=== PATIENT | male | born 1970 | race Caucasian/White ===

== ENCOUNTER 2019-03-01 08:03 | Inpatient (IN) | payer OTHER ==
[~2019-03-01] VITALS: Ht 177.8 cm; Wt 85.5 kg
[2019-03-01 08:52] LABS: Hematocrit 46.6 % (37.0-53.0); Hemoglobin 14.4 g/dL (13.5-17.5); Mean Corpuscular HGB 32.1 pg (26.0-34.0); Mean Corpuscular HGB Conc 30.9 g/dL (31.5-36.5); Mean Corpuscular Volume 104 fL (80-100); Mean Platelet Volume 9.5 fL (9.1-12.4); Platelet Count 450 K/mm3 (150-400); RDW Coefficient Variation 12.2 % (11.7-14.2); RDW Standard Deviation 47.9 fL (35.1-46.3); Red Blood Cell Count 4.49 M/mm3 (4.30-5.90); White Blood Cell Count 19.87 K/mm3 (4.00-11.30)
[2019-03-01 08:53] LABS: U Amphetamine Screen Not Detected; U Barbituate Screen Not Detected; U Benzodiazapine Screen Not Detected; U Buprenorphine Screen Not Detected; U Cannabinoids Screen DETECTED; U Cocaine Screen Not Detected; U Methadone Screen Not Detected; U Methamphetamine Screen Not Detected; U Opiates Screen Not Detected; U Oxycodone Screen Not Detected; U Phencyclidine Screen Not Detected; U Propoxyphene Screen Not Detected
[2019-03-01 09:05] LABS: Calcium, Ionized (POC) 1.22 mmol/L (1.10-1.46); Chloride (POC) 103 mmol/L (98-108); Creatinine (POC) 1.1 mg/dL (0.8-1.3); Glucose (ISTAT POC) 361 mg/dL (70-99); Hemoglobin (POC) 15.3 g/dL (13.5-17.5); Sodium (POC) 135 mmol/L (135-148); Total CO2 (POC) 19 mmol/L (21-32)
[2019-03-01 09:06] LABS: Alanine Aminotransfer (ALT/SGP 29 U/L (12-78); Albumin, Blood 4.1 g/dL (3.4-5.0); Alk Phos 76 U/L (50-136); Anion Gap 26 mmol/L (6-16); Aspartate Aminotrans (AST/SGOT 19 U/L (12-37); Bilirubin, Total 0.2 mg/dL (0.1-1.0); Blood Urea Nitrogen 15 mg/dL (8-24); Bun/Creatinine Ratio 13.9 (12.0-20.0); CO2, Blood 9 mmol/L (21-32); Calcium, Blood 9.2 mg/dL (8.5-10.1); Chloride, Blood 102 mmol/L (98-108); Creatinine, Blood 1.08 mg/dL (0.60-1.20); Globulin, Blood 4.3 g/dL (2.2-4.0); Glomerular Filtration Rate >60 (60-); Glucose, Blood 363 mg/dL (70-99); Potassium, Blood 3.6 mmol/L (3.5-5.5); Sodium, Blood 137 mmol/L (136-145); Total Protein, Blood 8.4 g/dL (6.4-8.2)
[2019-03-01 09:09] LABS: CPK Creatine Kinase 130 U/L (39-308); Troponin I <0.015 ng/mL (0.000-0.040)
[2019-03-01 09:19] LABS: BAND PERCENT MAN 4 % (0-8); BASOPHILS ABSOLUTE MAN 0.39 K/mm3 (0.00-0.23); BASOPHILS PERCENT MAN 2 % (0-2); EOSINOPHILS ABSOLUTE MAN 0.59 K/mm3 (0.00-0.68); EOSINOPHILS PERCENT MAN 3 % (0-6); LYMPHOCYTES ABSOLUTE MAN 6.15 K/mm3 (0.84-5.20); LYMPHOCYTES PERCENT MAN 31 % (21-46); METAMYELOCYTE ABSOLUTE MAN 0.59 K/mm3 (0.00-0.00); METAMYELOCYTE PERCENT MAN 3 % (0-0); MONOCYTES ABSOLUTE MAN 1.58 K/mm3 (0.16-1.47); MONOCYTES PERCENT MAN 8 % (4-13); MYELOCYTE ABSOLUTE MAN 0.19 K/mm3 (0.00-0.00); MYELOCYTE PERCENT MAN 1 % (0-0); NEUTROPHILS ABSOLUTE MAN 10.33 K/mm3 (1.96-9.15); SEG NEUTROPHILS PERCENT MAN 48 % (41-73); TOTAL CELLS COUNTED 100
[2019-03-01 09:25] LABS: Source, Urine Clean Catch
[2019-03-01] MEDS ORDERED: ESCI20 PO (09:25)
[2019-03-01] MEDS ORDERED: CHLO25B PO (09:25)
[2019-03-01] MEDS ORDERED: ASPI81CH (09:26)
[2019-03-01] MEDS ORDERED: LOSA25 (09:26)
[2019-03-01 09:34] LABS: Appearance, Urine Hazy (Clear); Bilirubin, Urine Neg (Neg); Blood, Urine 3+ (Neg); Color, Urine Yellow (P-Yellow); Glucose Qualitative, Urine 4+ (Neg); Ketones, Urine 1+ (Neg); Leukocyte Esterase, Urine Neg (Neg); Nitrite, Urine Neg (Neg); Protein, Urine 3+ (Neg); Specific Gravity, Urine 1.025 (1.003-1.022); Urobilinogen, Urine NORM (Normal)
[2019-03-01 09:42] LABS: Bacteria Not Seen /hpf; Squamous Epithelial Cells Not Seen /hpf (Few); White Blood Cells, Urine Not Seen /hpf (0-5)
[2019-03-01 09:43] LABS: Amorphous Heavy (0-Heavy); Granular Casts TNTC /lpf (0)
[2019-03-01 11:05] LABS: Source, Urine Catheter
[2019-03-01 11:11] LABS: Appearance, Urine Hazy (Clear); Bilirubin, Urine Neg (Neg); Blood, Urine 2+ (Neg); Color, Urine Yellow (P-Yellow); Glucose Qualitative, Urine 4+ (Neg); Ketones, Urine Neg (Neg); Leukocyte Esterase, Urine Neg (Neg); Nitrite, Urine Neg (Neg); Protein, Urine 2+ (Neg); Urobilinogen, Urine NORM (Normal)
[2019-03-01 11:28] LABS: White Blood Cells, Urine 0-2 /hpf (0-5)
[2019-03-01 11:29] LABS: Bacteria Not Seen /hpf; Squamous Epithelial Cells Not Seen /hpf (Few); Uric Acid Crystals Many /hpf
[2019-03-01 11:43] LABS: U Amphetamine Screen Not Detected; U Barbituate Screen Not Detected; U Benzodiazapine Screen DETECTED; U Buprenorphine Screen Not Detected; U Cannabinoids Screen DETECTED; U Cocaine Screen Not Detected; U Methadone Screen Not Detected; U Methamphetamine Screen Not Detected; U Opiates Screen Not Detected; U Oxycodone Screen Not Detected; U Phencyclidine Screen Not Detected; U Propoxyphene Screen Not Detected
[2019-03-01 11:44] LABS: Glucose, CSF 117 mg/dL (40-70)
[2019-03-01 11:57] LABS: Appearance, CSF Clear (Clear); Color, CSF No Color (No Color)
[2019-03-01 11:58] LABS: RBC Count, CSF 75 /mm3 (0-0)
[2019-03-01 12:05] LABS: Appearance, CSF Clear (Clear); Color, CSF No Color (No Color)
[2019-03-01 12:06] LABS: RBC Count, CSF 76 /mm3 (0-0); WBC Count, CSF 0 /mm3 (0-5)
[2019-03-01 12:34] LABS: Salicylate 4.6 mg/dL (2.8-20.0)
[2019-03-01 12:34] LABS: Monocytes, CSF 20 % (15-45); Neutrophils, CSF 80 % (0-6)
[2019-03-01 12:36] LABS: Lymphocytes, CSF 60 % (40-80); Monocytes, CSF 20 % (15-45); Neutrophils, CSF 20 % (0-6)
[2019-03-01 12:44] LABS: Acetaminophen, Random <2.0 ug/mL (10.0-30.0)
[2019-03-01 13:51] LABS: Base Excess Venous -0.1 mmol/L; Bicarbonate Venous 23.6 mmol/L (24.0-30.0); PCO2 Venous 47.4 mmHg (38-42); PO2 Venous 60.5 mmHg (38-42); pH Blood Venous 7.34 (7.34-7.37)
[2019-03-01 14:18] LABS: Anion Gap 7 mmol/L (6-16); Blood Urea Nitrogen 17 mg/dL (8-24); Bun/Creatinine Ratio 16.5 (12.0-20.0); CO2, Blood 27 mmol/L (21-32); Calcium, Blood 8.8 mg/dL (8.5-10.1); Chloride, Blood 107 mmol/L (98-108); Creatinine, Blood 1.03 mg/dL (0.60-1.20); Glomerular Filtration Rate >60 (60-); Glucose, Blood 100 mg/dL (70-99); Potassium, Blood 3.8 mmol/L (3.5-5.5); Sodium, Blood 141 mmol/L (136-145)
--- NOTE | 2019-03-01 15:28 | NUR ---
ASSUMED CARE/ASSESSMENT PT CAME TO ICU VIA STRETCHER AT 1305. HE WAS INTERMITTANTLY ALERT AND OBUTNDED, AND WHEN ALERT HE WAS NOT ORIENTED (HOWEVER, ONE TIME ANSWERING TO HIS NAME). HE WAS VERY RESISTANT AND WOULD NOT FOLLOW ANY COMMANDS. HE DID SPEAK AND SAID "I NEED TO PEE", AND "I CAN'T PEE IN BED". BUT OTHER THAN THAT HE JUST STRUGGLED AND FOUGHT US. HIS PUPILS WERE DILATED, AND REACTIVE TO LIGHT. HIS HR AND BP WERE AND ARE STABLE. WE WOULD THEN FALL ASLEEP FROM THE BENZOS AND HALDOL ON BOARD. AROUND 1330 WE WERE ABLE TO GET PRECEDEX ON BOARD, AND HE HASN'T RECEIVED ANYMORE BENZOS AND HALDOL. HE HAS ADEQUETLY BEEN SEDATED SINCE. NO SEIZURE ACTIVITY NOTED. HE CAME UP WITH 3L NC, BUT I HAVE TURNED THE O2's OFF BECAUSE HE WAS SAT'ING 98% THE WHOLE TIME. BHATIA HAS MOR, WITH RED COLORED URINE THAT HAS SEDIMENT PRESENT. NO MAJOR SKIN ISSUES, FEET WERE COOL, BUT STRONG PULSES AND GOOD CAP REFIL. NO NUCHAL RIGIDITY. BED LOW AND LOCKED. RESTRAINTS ARE IN PLACE: TWO TAT FOR BILATERAL LOWER EXTREMETIES, AND TWO SWB FOR BILATERAL UPPER EXTREMETY, AND A VEST.
--- NOTE | 2019-03-01 16:03 | NUR ---
UPDATE PT AWAKE - HE WAS ABLE TO COMMUNICATE, AND KIND OF FOLLOW DIRECTIONS. NOT REALLY RELIABLE. FORGETFUL. THOUGHT HE WAS IN [place], REMEMBERED HE WAS IN A HOSPITAL AFTER I TOLD HIM. UNSURE WHATS GOING ON, TRYING TO GET OUT OF RESTRAINTS. I ASKED HIM IF HE WOULD NOT GET OUT OF BED IF I TOOK THE RESTRAINTS OUT AND HE SAID "NO". HAD A LARGE UNFORMED, BROWN BM. CONTINUING TO FIGHT, PRECEDEX WAS TURNED UP TO 0.7MCG/KG/HR NOW. HE IS NOW RESTING, REQUIRING 1L NC.
--- NOTE | 2019-03-01 18:52 | NUR ---
SHIFT SUMMARY PT ENDS SHIFT ON PRECEDEX AT 0.6MCG/KG/HOUR. HIS HR IS HIGH 50'S, STRONG PULSES, GOOD BLOOD PRESSURES. HE IS ON 2L NC, WHILE ASLEEP - MAINTAINING SATS HIGH 90'S. HE STARTED TO CLEAR UP A TINY BIT, BUT STILL TOTALLY UNAWARE OF WHAT WAS GOING ON AND HE CANNOT SEEM TO [employer], REPEATEDLY ASKING THE SAME QUESTIONS WHEN HE WOULD WAKE UP. HE HAD A TEMP OF 99.1. HE WAS TACHYPNEIC, BUT THAT HAS BEEN IMPROVING. BED IS LOW AND LOCKED. CALL LIGHT WITHIN REACH.
--- NOTE | 2019-03-01 20:00 | NUR ---
ASSUMED CARE OF PT AT 1915. REPORT RECEIVED AT BEDSIDE. PT PRESENTS IN BED. HAS PRECEDEX INFUSING AT 0.6 MCG'S/KG/MIN. PT DOES NOT AWAKEN DURING BEDSIDE REPORT. DID AWAKEN DURING ASSESSMENT. PT VOICES HE IS NOT SURE WHERE HE IS AT THIS TIME. AFTER SOME PAUSE, PT WAS ABLE TO SAY IT WAS FEBRUARY AND THAT HE BELIEVES HE MAY BE IN A HOSPITAL. REORIENTED PT. SOFT WRIST RESTAINTS ON UPPER EXTREMITIES AND TAT CUFFS ON ANKLES. WILL MONITOR AND RE-EVALUATE NEED FOR RESTRAINTS. WILL REVIEW CHART AND PLAN OF CARE FOR PT.
--- NOTE | 2019-03-01 22:59 | NUR ---
DID REMOVE ANKLE RESTRAINTS FROM PT. TEACHING DONE WITH PT. AGAIN REMAINS SOMEWHAT DISORIENTED. WILL CONTINUE TO REORIENT PT. PRECEDEX CONTINUES AT 0.6MCG'S
--- NOTE | 2019-03-02 01:45 | NUR ---
PT REMAINS RESTING IN BED. NO S/S ADVERSE REACTIONS TO ANTIBIOTIC THERAPY. IS ABLE TO ADJUST HIMSELF IN BED INDEPENDENTLY. WHEN PT AWAKE, WILL REASSES MENTAL STATUS. WILL CONTINUE TO MONITOR FOR SAFETY OF REMOVING RESTRAINTS.
--- NOTE | 2019-03-02 06:30 | NUR ---
PT HAS SLEPT MOST OF THE NIGHT. WHEN AWAKE, PT HAS BECOME MORE LUCID AND ABLE TO HOLD CONVERSATIONS. TRIALED PT WITH WATER WHICH HE WAS ABLE TO DRINK WITHOUT COUGH. PRECEDEX ON AT 0.6 MCG'S. PT WAS, UNFORTUNATELY NEAR 0430 ABLE TO SLIP HIS HAND OUT OF WRIST RESTRAINT THEN UNDID OPPOSITE WRIST RESTRAINT. DURING THIS TIME, PT PULLED OUT AN IV FROM RIGHT HAND, AND REMOVED BLOOD PRESSURE CUFF, AND OXIMETER. PLACED NEW 18 GAUGE IN LEFT BASILIC VEIN. PT AGAIN HELD CONVERSATION WITH SOME LOOSE CONNECTION. WOULD GO OFF IN DIFFERENT CONVERSATIONAL PATH. PT ASKED WHO A NURSE IN ROOM WAS, AND HE WAS TOLD. HE THEN CALLS FOR HER, AND STARTED SPEAKING OF IT BEING NECCESSARY TO "HIDE THE BODIES UNDER THE PILE." AFTER REPEATING HIMSELF IN DIFFERENT WORDING, HE SAYS THAT IT "WOULD KEEP THEM FROM COMING AFTER YOU." WILL CONTINUE TO MONITOR, AND WILL REPORT OFF TO ONCOMING RN.
--- NOTE | 2019-03-02 07:07 | NUR ---
ASSUMED CARE RECEIVED REPORT FROM MIRTA HARRELL. PT IS LYING IN BED RESTRAINED WITH BILATERAL SWBs AND A VEST. PER REPORT HE IS CLEARING UP A LITTLE, BUT IS STILL CONFUSED AND MAKING ODD STATEMENTS, HE PULLED OUT AN IV AND TRIED TO PULL OUT BHATIA. HE IS ON PRECEDEX AT 0.6MCG/KG/HR, AND LR AT 150ML/HR. VITALS ARE STABLE. HE IS ASLEEP. BED LOW AND LOCKED. BHATIA IS PATENT AND DRAINING URINE.
--- NOTE | 2019-03-02 08:24 | NUR ---
UPDATE PT IS MUCH MORE ALERT, AND IS ORIENTED TO PLACE, SELF, AND SITUATION. HE KNOWS HE WAS FOUND DOWN, AND HAD A SEIZURE. HE TOLD ME ABOUT HIS LIFE - HE HAS BEEN LIVING IN [place] FOR THE PAST FEW YEARS DOING ODD BALL JOBS. BEFORE THAT HE WAS IN [place] SINCE 1998, AND BEFORE THAT [place]. HE STILL MAKES SOME CONFUSING STATEMENTS, LIKE TALKING ABOUT A SHARK TANK WHEN I WAS TAKLING ABOUT HIS IV'S. HE DOES ASK FOLLOW UP QUESTIONS, AND INQUIRES ABOUT WHY THIS ALL MIGHT OF HAPPENED. HE SAYS HE DOESNT REMEMBER EVER HAVING A SIEZURE IN THE PAST. AND WHEN I ASKED HIM WHAT WAS THE LAST THING HE REMEMBERS, HE CANT SEEM TO TELL ME ANYTHING ABOUT THAT. SAYS "OH ILL NEED TO THINK ABOUT THAT".
--- NOTE | 2019-03-02 08:36 | NUR ---
DR MEAD IN ROOM WITH PT.
--- NOTE | 2019-03-02 08:41 | NUR ---
PT IS NOW SAYING HE HAS HAD SEIZURES IN HIS PAST, UNCONTROLLABLE BODY SHAKES IS WHAT HE DESCRIBES IT . AND HE IS FINALLY COMPREHENDING THE SITUATION OF IT ALL. HE COMPLAINS OF NOT BEING ABLE TO AFFORD BEING IN THE HOSPITAL AND OF HIS SHARP NECK PAIN. DR MEAD HAS ORDERED A DIET TO ADVANCE TOLERATED, TYLENOL PRN, AND A LIDOCAINE PATCH. WILL PROBABLY TAKE OFF ALL RESTRAINTS IF HE VERBALIZES UNDERSTANDING OF NOT TAKING OUT IV'S, BHATIA, OR ELECTRODES.
[2019-03-02 09:31] LABS: BASOPHILS ABSOLUTE AUTO 0.04 K/mm3 (0.00-0.23); BASOPHILS PERCENT AUTO 0 % (0-2); EOSINOPHILS ABSOLUTE AUTO 0.01 K/mm3 (0.00-0.68); EOSINOPHILS PERCENT AUTO 0 % (0-6); Hemoglobin 12.9 g/dL (13.5-17.5); IMMATURE GRAN ABSOLUTE AUTO 0.09 K/mm3 (0.00-0.10); IMMATURE GRAN PERCENT AUTO 1 % (0-1); LYMPHOCYTES ABSOLUTE AUTO 1.44 K/mm3 (0.84-5.20); LYMPHOCYTES PERCENT AUTO 9 % (21-46); MONOCYTES ABSOLUTE AUTO 1.31 K/mm3 (0.16-1.47); MONOCYTES PERCENT AUTO 8 % (4-13); Mean Corpuscular HGB 32.4 pg (26.0-34.0); Mean Corpuscular HGB Conc 33.9 g/dL (31.5-36.5); Mean Platelet Volume 9.4 fL (9.1-12.4); NEUTROPHILS ABSOLUTE AUTO 13.97 K/mm3 (1.96-9.15); NEUTROPHILS PERCENT AUTO 83 % (41-73); Platelet Count 296 K/mm3 (150-400); RDW Coefficient Variation 12.6 % (11.7-14.2); RDW Standard Deviation 44.3 fL (35.1-46.3); Red Blood Cell Count 3.98 M/mm3 (4.30-5.90); White Blood Cell Count 16.86 K/mm3 (4.00-11.30)
[2019-03-02 09:40] LABS: Mean Corpuscular Volume 96 fL (80-100)
[2019-03-02 09:47] LABS: Calcium, Blood 8.8 mg/dL (8.5-10.1); Creatinine, Blood 1.35 mg/dL (0.60-1.20); Potassium, Blood 3.4 mmol/L (3.5-5.5)
[2019-03-02] MEDS ORDERED: ACET500 PO (17:49)
[2019-03-02] MEDS ORDERED: Aspir 8181 MG PO (17:50)
[2019-03-02] MEDS ORDERED: IBUP200 PO (17:51)
[2019-03-02] MEDS ORDERED: LOSA50 PO (17:52)
--- NOTE | 2019-03-02 18:13 | NUR ---
SHIFT SUMMARY NO ACUTE EVENTS TODAY. PT AGREES TO STAY ONE MORE NIGHT - HE WAS HAVING DOUBTS ABOUT STAYING IN HOSPITAL DUE TO FEAR OF A LARGE HOSPITAL BILL COMING TO HIM. I EXPLAINED TO HIM THE RISKS OF LEAVING AGAINST MEDICAL ADVICE DR MEAD WANTS HIM TO STAY AT LEAST ONE MORE NIGHT. AND HE WAS AGREEABLE. HE IS A LOT MORE CLEAR TODAY, YET STILL HAS MOMENTS OF SAYING VERY ODD THINGS THAT DON'T MAKE SENSE. SEE MY PREVIOUS NOTES ABOUT EARLIER CONVERSATIONS WE HAD. JANNETTE HAS JUST BEEN REMOVED, AND HE IS NOW OUT OF RESTRAINTS COMPLETELY FOR HE IS FOLLOWING ALL COMMANDS. HE GOT A DIET TODAY AND HAS EATEN SOME, DRINKING PLENTY OF FLUIDS. BED IS LOW AND LOCKED. CALL LIGHT WITHIN REACH. HE ATTEMPTED TO CALL A FRIEND, BUT COULDN'T REACH HER SO HE LEFT A MESSAGE. WILL FOLLOW UP ON THAT WHEN POSSIBLE, TO DETERMINE HIS BASELINE.
--- NOTE | 2019-03-02 22:17 | NUR ---
ASSUMED CARE OF PT AT 1915. REPORT RECEIVED. PT PRESENTS IN BED SLEEPING. DOES AWAKEN EASILY TO ASSESSMENT AND GREETING. COOPERATIVE WITH CARE. IS ABLE TO STATE DATE, TIME, PLACE, AND EVENT THAT BROUGHT HIM TO THE HOSPITAL. IS ON PRECEDEX DRIP AT 0.3 MCG'S/KG/MIN. THIS HAS SINCE BEEN PLACED TO STANDBY. PT ABLE TO ANSWER QUESTIONS APPROPRIATELY AND AT TIMES WANDERS OFF SUBJECT ON A TANGENT. HAS NO COMPLAINTS AT THIS TIME. WILL REVIEW CHART AND PLAN OF CARE FOR THIS PT.
--- NOTE | 2019-03-02 22:19 | NUR ---
PT REMAINS IN BED. USES URINAL INDEPENDENTLY. STATES IT TAKES HIM A BIT LONGER TO URINATE AFTER HE HAS HAD THE CATHETER REMOVED. PT HAS REMAINED APPROPRIATE. WILL CONTINUE TO MONITOR FOR SAFETY.
--- NOTE | 2019-03-03 01:43 | NUR ---
PT HAS REMAINED APPROPRIATE. HAS NOT PULLED AT ANY OF HIS WIRES OR IV'S. DID PULL OFF HIS OXIMETER. PT REMAINS POLITE AND APPROPRIATE WITH CARE. PRECEDEX REMAINS OFF AT THIS TIME.
[2019-03-03 04:19] LABS: Hematocrit 38.5 % (37.0-53.0); Hemoglobin 12.8 g/dL (13.5-17.5); Mean Corpuscular HGB 32.2 pg (26.0-34.0); Mean Corpuscular HGB Conc 33.2 g/dL (31.5-36.5); Mean Corpuscular Volume 97 fL (80-100); Mean Platelet Volume 9.8 fL (9.1-12.4); Platelet Count 212 K/mm3 (150-400); RDW Coefficient Variation 12.8 % (11.7-14.2); Red Blood Cell Count 3.98 M/mm3 (4.30-5.90)
[2019-03-03 04:27] LABS: Anion Gap 6 mmol/L (6-16); Blood Urea Nitrogen 21 mg/dL (8-24); Bun/Creatinine Ratio 17.9 (12.0-20.0); CO2, Blood 22 mmol/L (21-32); Calcium, Blood 7.5 mg/dL (8.5-10.1); Chloride, Blood 115 mmol/L (98-108); Creatinine, Blood 1.17 mg/dL (0.60-1.20); Glomerular Filtration Rate >60 (60-); Glucose, Blood 90 mg/dL (70-99); Potassium, Blood 3.2 mmol/L (3.5-5.5); Sodium, Blood 143 mmol/L (136-145)
--- NOTE | 2019-03-03 06:39 | NUR ---
PT HAS BEEN ABLE TO REST THIS NIGHT. HAS REMAINED APPROPRIATE. NO COMPLAINTS VOICED BY PT. MOVES ABOUT BED ON HIS OWN. HAS NOT PULLED AT ANY LEADS OR IV'S. WILL CONTINUE TO MONITOR PT, AND WILL REPORT OFF TO ONCOMING RN.
--- NOTE | 2019-03-03 09:16 | NUR ---
ASSUMED CARE RECEIEVED REPORT FROM JULIO CESAR KIRBY. PT WAS SEEN BY DR. MEAD AND HE WILL BE DC'D TODAY. HE HAS AMBULATED AND IS TAKING A SHOWER CURRENTLY. HE IS ALERT AND ORIENTED TO SELF, SURROUNDINGS, PLACE, AND SORT OF THE SITUATION (FORGETFUL). I WILL BE HOPING TO GET AN APOINTMENT SCHEDULED WITH THE NEUROLOGIST AND HIS PCP. BED IS LOW AND LOCKED. CALL LIGHT WITHIN REACH.
[2019-03-03] MEDS ORDERED: LEVE500 PO (10:04)
== END 2019-03-03 11:25 | disposition home or self-care (01) | DRG 101 ==
LOC: ER 08:03 → ICUW 11:57 → ICUE 11:57
PROVIDERS: Physician Assistant; ADMIT Internal Medicine
DX: R56.9 Unspecified convulsions (principal); E87.2 Acidosis; I10 Essential (primary) hypertension; F32.9 Major depressive disorder, single episode, unspecified
CPT/HCPCS: 36415; 51702; 62270; 70450; 71045; 80047; 80048; 80053; 81001; 82550; 82803; 82945; 83605; 84157; 84484; 85014; 85025; 85027; 87040; 87070; 87205; 89051; 93005; 93010; 96365-59; 96375-59; 96376-59; 99285-25; A9270; G0480; J0696; J1630; J1650; J2060; J2250; J2310; J3370; J7050; J7120